=== PATIENT | female | born 1975 | race Caucasian/White ===

== ENCOUNTER 2023-04-01 10:17 | Outpatient (CLI) | payer BC, SELFPAY | END 2023-04-01 10:18 | disposition home or self-care (01) | PROVIDERS: PCP Physician Assistant; Visit Provider Family Medicine | DX: M54.16 Radiculopathy, lumbar region (principal); M51.34 Other intervertebral disc degeneration, thoracic region | CPT/HCPCS: 62323; J0702; Q9966 ==

== ENCOUNTER 2024-03-05 10:32 | Emergency (ER) | payer BC, SELFPAY ==
[2024-03-05 10:40] VITALS: BP 142/113; PULSE 80; RESP 18; TEMP 36.8; O2SAT 100; BMI 42.4
--- NOTE | 2024-03-05 10:47 | ED_ITS ---
HPI - General Adult General Time Seen by Provider: 10:47 Date Seen: 03/05/24 Chief complaint: Flank Pain Stated complaint: Kidney infection pain Time Seen by Provider: 03/05/24 10:47 Source: patient, RN notes reviewed and old records reviewed Mode of arrival: ambulatory Limitations: no limitations History of Present Illness HPI narrative: 48-year-old female who comes in today with flank pain. This started yesterday. She was seen at outside emergency department and had labs and imaging done, was felt that symptoms could be related to musculoskeletal pain in patient was discharged. Followed up with clinic this morning who felt she had a urinary infection, she was given Rocephin IM at the clinic and also discharged with Bactrim and Dilaudid tablets, however she was unable to fill these so came to the emergency department. Patient has multiple drug allergies and intolerances. She denies fever chills, denies urinary symptoms, does have flank pain it known his kidney stones. Related Data Home Medications ?Medication ?Instructions ?Recorded ?Confirmed Blood Glucose Meter 09/10/23 09/10/23 diphenhydramine-phenylephrine 12.5 ml PO 09/10/23 09/10/23 mg-5 mg/5 mL oral solution (Child Benadryl Plus Congestion) hydromorphone 2 mg tablet 2 mg PO Q6H 09/10/23 09/10/23 loratadine 10 mg tablet (Allergy 10 mg PO QDAY 09/10/23 09/10/23 Relief (loratadine)) omeprazole 10 mg capsule,delayed 10 mg PO ONCE 09/10/23 09/10/23 release Previous Rx's ?Medication ?Instructions ?Recorded huilxlbqdo-bfguoidxysqzf-vwxehvis 1 cap PO Q4-6H PRN pain #30 caps 09/10/23 50 mg-300 mg-40 mg capsule (Fioricet) eflornithine 13.9 % topical BID #15 grams 09/10/23 spironolactone 25 mg tablet 25 mg PO QDAY #30 tabs 09/10/23 paroxetine HCl 10 mg tablet 10 mg PO QDAY #30 tabs 10/17/23 hydromorphone 2 mg tablet 2 mg PO Q4H PRN pain #10 tabs 03/05/24 Allergies Allergy/AdvReac Type Severity Reaction Status Date / Time azithromycin Allergy Mild Dizziness Verified 10/13/23 13:38 lidocaine Allergy Mild Rash Verified 10/13/23 13:38 naproxen Allergy Mild Rash Verified 10/13/23 13:38 gluten AdvReac Severe Diarrhea Verified 10/13/23 13:38 lactose AdvReac Severe Abdominal Verified 10/13/23 13:38 Pain adshesive tape AdvReac Severe Redness of Uncoded 10/13/23 13:38 Skin cetrizine AdvReac Severe Muscle Pain Uncoded 10/13/23 13:38 CT dye AdvReac Severe Anaphylaxis Uncoded 10/13/23 13:38 Shellfish AdvReac Severe Difficulty Uncoded 10/13/23 13:38 Swallowing amxocillin AdvReac Intermediate Hives Uncoded 10/13/23 13:38 PFSH PFS Medical History (Updated 03/05/24 @ 12:22 by Timo Astudillo MD) History of gestational diabetes ?Z86.32 - Personal history of gestational diabetes (ICD-10) History of nephrolithiasis ?Z87.442 - Personal history of urinary calculi (ICD-10) History of abnormal cervical Pap smear (2000) ?Z87.42 - Personal history of other diseases of the female genital tract (ICD-10) History of loss ?Z87.59 - Personal history of other complications of , childbirth and the puerperium (ICD-10) Surgical History (Updated 09/08/23 @ 11:02 by Steff Meza) History of cholecystectomy ?Z90.49 - Acquired absence of other specified parts of digestive tract (ICD- 10) History of tonsillectomy and adenoidectomy ?Z90.89 - Acquired absence of other organs (ICD-10) History of loop electrosurgical excision procedure (LEEP) (12/2001) ?Z98.890 - Other specified postprocedural states (ICD-10) Family History (Updated 09/08/23 @ 11:10 by Steff Meza) Father Heart disease High cholesterol Mother Diabetes High cholesterol High blood pressure Exam Narrative: Exam Narrative: General: Well-developed and well-nourished, appears anxious and uncomfortable Head: Atraumatic and normocephalic Eyes: Pupils are equal reactive, extraocular motions intact, conjunctiva clear ENT: External nose and ears are normal, posterior pharynx without erythema or exudate Neck: No midline cervical tenderness, full spontaneous range of motion the neck, trachea midline, no adenopathy Heart: Regular rate and rhythm no murmurs or thrills Lungs: Clear to auscultation bilaterally without wheezes or crackles Abdomen: Soft, left CVA tenderness, nondistended with active bowel sounds Musculoskeletal: No tenderness, deformity, or edema Neurologic: Awake, alert, and oriented x3, no gross focal neurologic deficits, cranial nerves intact as tested Psych: Mood and affect are appropriate Skin: No rashes Const: Vital Signs, click to edit/add: Vital Signs - 24 hr 03/05/24 10:40 Temperature 98.2 F Pulse Rate [Pulse Oximeter] 80 Respiratory Rate 18 Blood Pressure [Ri ght Forearm] 142/113 H Pulse Oximetry 100 Oxygen Delivery Me thod Room Air Course Course ED Course: Patient seen examined, presents today with flank pain. Pain started yesterday, she was seen at the emergency department in [place], review of those records shows CT scan which demonstrated nonobstructing stones in the kidney. He normal CBC, creatinine 0.84, urinalysis with 11-25 red cells, 25 to 50 white cells, leukocyte esterase positive. Patient presents today with continued flank pain. Denies fevers or chills. On initial exam appears quite uncomfortable, finally stable. Concern for possible obstructing stone although not seen on CT scan done early this morning. Labs ordered along with Toradol, Dilaudid. Renal ultrasound ordered to evaluate for obstruction. Reevaluation(s) Time of Reevaluation #1: 11:51 Reevaluation #1: Labs ordered and independently interpreted by me normal CBC. Time of Reevaluation #2: 12:04 Reevaluation #2: I contacted [facility], they do have she oral hydromorphone in stock. Time of Reevaluation #3: 12:17 Reevaluation #3: Renal ultrasound does not show new hydronephrosis,, bilateral ureteral jets are seen. Failure, no evidence for obstruction on ultrasound. Patient is stable for discharge. Vital Signs Vital signs: Initial Vital Signs Temperature 98.2 F 03/05/24 10:40 Temperature Source Temporal Artery Scan 03/05/24 10:40 Pulse Rate 80 03/05/24 10:40 Pulse Rhythm Regular 03/05/24 10:40 Respiratory Rate 18 03/05/24 10:40 Blood Pressure 142/113 H 03/05/24 10:40 Blood Pressure Mean 122 H 03/05/24 10:40 Blood Pressure Position Sitting 03/05/24 10:40 Pulse Oximetry 100 03/05/24 10:40 Oxygen Delivery Method Room Air 03/05/24 10:40 Vital Signs Temperature 98.2 F 03/05/24 10:40 Pulse Rate 80 03/05/24 10:40 Respiratory Rate 18 03/05/24 10:40 Blood Pressure 142/113 H 03/05/24 10:40 Pulse Oximetry 100 03/05/24 10:40 Oxygen Delivery Method Room Air 03/05/24 10:40 Temperature 98.2 F 03/05/24 10:40 Pulse Rate 80 03/05/24 10:40 Respiratory Rate 18 03/05/24 10:40 Blood Pressure 142/113 H 03/05/24 10:40 Pulse Oximetry 100 03/05/24 10:40 Oxygen Delivery Method Room Air 03/05/24 10:40 Medications Administered Medications: Discontinued Medications Generic Name Dose Route Start Last Admin Trade Name Freq PRN Reason Stop Dose Admin Hydromorphone HCl 0.5 mg 03/05/24 11:04 03/05/24 11:43 Hydromorphone 0.5 Mg/0.5 Ml Inj IVP 03/05/24 11:05 0.5 mg ONCE ONE Administration Ketorolac Tromethamine 15 mg 03/05/24 11:04 03/05/24 11:43 Ketorolac 15 Mg/Ml Inj IVP 03/05/24 11:05 15 mg ONCE ONE Administration Ondansetron HCl 4 mg 03/05/24 11:04 03/05/24 11:43 Ondansetron 2 Mg/Ml Inj IVP 03/05/24 11:05 4 mg ONCE ONE Administration Medical Decision Making Lab Data Labs: Lab Results 03/05/24 Range/Units 11:30 WBC 5.15 (4.50-11.00) K/uL RBC 4.60 (4.00-5.20) m/uL Hgb 12.5 (12.0-16.0) gm/dL Hct 38.8 (33.0-51.0) % MCV 84 (80-100) fL MCH 27 (26-34) pg MCHC 32 (32-36) gm/dL RDW Coeff of Nadeem 14.6 (11.5-15.5) % Plt Count 293 (140-440) K/uL Neut % (Auto) 55.3 (42.0-72.0) % Lymph % (Auto) 34.0 (20-44) % [place] % (Auto) 8.0 (0.0-11.0) % Eos % (Auto) 1.7 (0.0-7.0) % Baso % (Auto) 0.8 (0.0-3.0) % Neut # (Auto) 2.85 (1.7-7.0) K/uL Lymph # (Auto) 1.75 (0.90-2.90) K/uL [place] # (Auto) 0.40 (0.00-0.90) K/UL Eos # (Auto) 0.09 (0.00-0.50) K/uL Baso # (Auto) 0.04 (0.00-0.30) K/uL Abs Immat Gran (auto) 0.01 (0.00-0.30) K/uL Imm/Tot Granulo (auto) 0.2 % Sodium 141 (135-149) mmol/L Potassium 4.2 (3.6-5.1) mmol/L Chloride 109 (96-114) mmol/L Carbon Dioxide 24 (20-32) mmol/L Anion Gap 8 (7-15) mEq/L BUN 9 (5-24) mg/dL Creatinine 0.7 (0.5-1.5) mg/dL Estimated Creat Clear 94.01 Estimated GFR 108 ml/min Glucose 98 (60-115) mg/dL Calcium 8.7 (8.4-10.6) mg/dL Discharge Plan Discharge Clinical Impression: Complicated urinary tract infection, Nephrolithiasis Patient Disposition: Home, Self-Care Condition: Stable Instructions: Kidney Stones (ED), Urinary Tract Infection in Women (DC) Additional Instructions: Take Tylenol ibuprofen as needed for pain, Dilaudid as needed for or severe pain Start the antibiotics previously prescribed Follow-up with primary care and Urology next week Activity Level: Activity as Tolerated Discharge Diet: Regular Prescriptions: New hydromorphone 2 mg tablet 2 mg PO Q4H PRN (Reason: pain) Qty: 10 0RF No Action loratadine [Allergy Relief (loratadine)] 10 mg tablet 10 mg PO QDAY Child Benadryl Plus Congestion 12.5-5 mg/5 mL solution PO omeprazole 10 mg capsule,delayed release(DR/EC) 10 mg PO ONCE hydromorphone 2 mg tablet 2 mg PO Q6H (DME) Blood Glucose Meter Misc See Rx Instructions .ROUTE Rx Instructions: As directed ulyazxzowz-ntyzyupufzogm-njbl [Fioricet] 50-300-40 mg capsule 1 cap PO Q4-6H PRN (Reason: pain) Qty: 30 1RF spironolactone 25 mg tablet 25 mg PO QDAY Qty: 30 2RF eflornithine 13.9 % topical BID Qty: 15 1RF Rx Instructions: Eflornithine 13.9% topical cream Apply a thin layer to the affected area(s) of the face and under the chin twice a day allowing at least 8 hours between applications. paroxetine HCl 10 mg tablet 10 mg PO QDAY Qty: 30 1RF Follow Up/Referrals: Melly Noguera PA-C [Primary Care Provider] - Stand Alone Forms: [facility] Info Instructions
--- NOTE | 2024-03-05 11:05 | CRLHL7_ITS ---
For Patients: As a result of the Century Cures Act, medical imaging exams and procedure reports are released immediately into your electronic medical record. You may view this report before your referring provider. If you have questions, please contact your health care provider. Indication: Left flank pain. Technique: Ultrasound of the kidneys and bladder was performed. Comparison: Same day CT of the abdomen and pelvis. Findings: Right kidney measures 13.2 x 5.1 x 5.5 cm and left kidney measures 13.5 x 5.9 x 6.8 cm. Renal cortical thickness is maintained. Renal cortical echogenicity is normal. No hydronephrosis. No discrete renal mass is seen. There is a simple appearing renal pelvis cysts involving the left renal hilum measuring 3.9 x 3.7 x 4.3 cm. No internal solid components or complexity is identified. The bilateral nonobstructing renal calculi seen on same-day CT are not readily apparent on ultrasound. The bladder is unremarkable for degree of distention. Prevoid bladder volume measures 51 mL. Bilateral ureteral jets were visualized on color Doppler. Impression: 1. Simple appearing left renal pelvis cyst measures up to 4.4 cm. 2. No hydronephrosis. 3. Bilateral nonobstructing renal calculi seen on same-day CT are less conspicuous on ultrasound. Dictated by Annie Cuevas MD @ 03/05/2024 12:07:19 PM (Electronically Signed)
[2024-03-05 11:41] LABS: Basophils Absolute Auto 0.04 K/uL (0.00-0.30); Basophils Percent Auto 0.8 % (0.0-3.0); Eosinophils Absolute Auto 0.09 K/uL (0.00-0.50); Eosinophils Percent Auto 1.7 % (0.0-7.0); Hematocrit 38.8 % (33.0-51.0); Hemoglobin* 12.5 gm/dL (12.0-16.0); Immature Granulocytes Abs Auto 0.01 K/uL (0.00-0.30); Immature Granulocytes Pct Auto 0.2 %; Lymphocytes Absolute Auto 1.75 K/uL (0.90-2.90); Mean Corpuscular HGB Conc 32 gm/dL (32-36); Mean Corpuscular Hemoglobin 27 pg (26-34); Mean Corpuscular Volume 84 fL (80-100); Neutrophils Absolute Auto 2.85 K/uL (1.7-7.0); Neutrophils Percent Auto 55.3 % (42.0-72.0); Platelet Count* 293 K/uL (140-440); RDW Coefficient of Variation % 14.6 % (11.5-15.5); White Blood Count* 5.15 K/uL (4.50-11.00)
[2024-03-05] MEDS: HYDROmorphone 0.5 mg/0.5 ml inj IVP (11:43)
[2024-03-05] MEDS: KETOROLAC 15 MG/ML inj IVP (11:43)
[2024-03-05] MEDS: ONDANSETRON 2 MG/ML inj 4 MG IVP (11:43)
[2024-03-05 11:46] LABS: Slide Review Reflex No
[2024-03-05 11:55] LABS: Chloride* 109 mmol/L (96-114); Potassium* 4.2 mmol/L (3.6-5.1); Sodium* 141 mmol/L (135-149)
[2024-03-05 11:57] LABS: Creatinine* 0.7 mg/dL (0.5-1.5); Est. Creatinine Clearance* 94.01; Estimated Glomerular Filt Rate 108 ml/min
[2024-03-05 11:58] LABS: Blood Urea Nitrogen* 9 mg/dL (5-24); Calcium* 8.7 mg/dL (8.4-10.6); Carbon Dioxide* 24 mmol/L (20-32); Glucose* 98 mg/dL (60-115)
[2024-03-05 12:14] LABS: Anion Gap 8 mEq/L (7-15)
== END 2024-03-05 13:03 | disposition home or self-care (01) ==
PROVIDERS: Emergency Provider Family Medicine; PCP Physician Assistant
DX: N39.0 Urinary tract infection, site not specified (principal); N20.0 Calculus of kidney
CPT/HCPCS: 36415; 76775; 80048; 85025; 96374; 96375; 99284; J1170; J1885; J2405

== ENCOUNTER 2025-07-21 07:39 | Emergency (ER) | payer BC, SELFPAY ==
[2025-07-21] VITALS (7 sets, daily range): BP systolic 133; BP diastolic 81; PULSE 69–86; RESP 16–18; TEMP 36.5; O2SAT 96–100; BMI 42.0
--- OUTSIDE RECORDS SUMMARY | 2025-07-21 07:41 | XMS_ITS | Clinical Summary ---
Author Organization [facility] Address [address] [place] [address] Care Team Providers Care Bliss Press Operator Name Role Phone Unavailable Primary Care Provider Unavailabl e Source Comments You are receiving this document as you are listed as the primary care provider,follow-up provider, or the patient has been referred to you for consultation.This is in compliance with the Medicare and[facility] EHR Incentive Program,which states Providers who transition their patient to another setting of careor provider of care or refers their patient to another provider of care shouldprovide summary care record for each transition of care or referral. [facility] Allergies Active Allergy Reactions Criticality Noted Date Comments Amoxicillin Hives High 12/26/2021 Cetirizine Hives High 12/26/2021 Gluten Meal Edema,generalized 12/26/2021 Lidocaine Hives High 12/26/2021 Milk-Related Compounds Gastrointestinal 022 Naproxen Anaphylaxis High 12/26/2021 Wound Dressing Adhesive Rash 12/26/2021 Penicillins Unknown 12/26/2021 Seafood Anaphylaxis High 12/26/2021 Azithromycin Respiratory Distress High 12/26/2021 Medications HYDROmorphone (DILAUDID) 2 MG tablet Take 2 mg by mouth 4 times a day. 12/20/2021 Active cefadroxil (DURICEF) 500 MG capsule Take 500 mg by mouth two times daily as needed. 12/20/2021 Active Cholecalciferol (VITAMIN D3 OR) Acti ve cyclobenzaprine (FLEXERIL) 5 MG tablet Take 5 mg by mouth three times a day as needed for Muscle Spasms. Active HYDROcodone-sabine taminophen (NORCO) 5-325 MG tablet Take 1-2 Tablets by mouth every 6 hours as needed for Pain. Active loratadine (CLARITIN) 10 MG tablet Take 10 mg by mouth daily. Active Nystatin (MYCOSTATIN MT) Acti ve omeprazole (PRILOSEC) 20 MG capsule Take 20 mg by mouth daily. Take 1 hour before a meal. Active diphenhydrAMINE (BENADRYL) 12.5 MG chewable tablet Chew and swallow 12.5 mg by mouth 4 times daily as needed for Allergies. Active Active Problems Problem Noted Date Diagnosed Date History of miscarriage 12/26/2021 Chronic back pain greater than 3 months duration 12/26/2021 Positive MAGDI (antinuclear antibody) 12/26/2021 Vitamin D deficiency 06/20/2011 Hx LEEP (loop electrosurgica l excision procedure), cervix, 10/04/2010 High-risk 10/04/2010 Renal colic on left side 10/04/2010 Polyhydramnios, antepartum complication 10/04/19 11 Obesity, morbid (more than 1 00 lbs over ideal weight or BMI > 40) 10/04/2010 Generalized anxiety disorder 05/17/2010 Obesity 10/19/2008 Overview (06/22/2015): Epic Resolved Problems Problem Noted Date Diagnosed Date Resolved Date Renal calculus or stone 10/04/201005/24 Encounter for supervision of other normal 02/06/2010 06/17/2011 Immunizations Immunization Administration Dates Next Due DTP 08/18/1979,08/04/1978,05/12/1978 ,02/03/1978 MMR 02/25/1979 Polio, Unspecified Formulation 08/18/1979,1977,05/12/1978,02/03/1978 TB Skin Test (PPD) 11/12/1978 Family History Medical History Relation Name Comments Blood Disease Father blood clotting ? Heart Disease Father High Blood Pressure Father Other Father DVT's Diabetes Mother High Blood Pressure Mother Lipids Mother Lipids Brother 1 Heart Disease Brother 2 Heart Disease Brother 3 Psoriasis Daughter Diabetes Maternal Grandfather Heart Disease Maternal Grandfather Diabetes Paternal Grandfather Heart Disease Paternal Grandfather Relation Name Status Comments Father Mother Brother 1 Brother 2 Brother 3 Daughter Maternal Grandfather Paternal Grandfather Social History Tobacco Use Types Packs/Day Years Used Date Smoking Tobacco: Former Cigarettes 1 10 1 995 - 2005 Smokeless Tobacco: Never Comments:smoked for 9 yr Alcohol Use Standard Drinks/Week Comments Not Currently 0 (1 standard drink = 0.6 oz pur e alcohol) occasoinally Comments Unknown Sex and Gender Information Value Date Recorded Sex Assigned at Not on file Legal Sex Female 8:57 AM CDT Gender Identity Not on file Sexual Orientation Not on file Last Filed Vital Signs Vital Sign Reading Time Taken Comments Blood Pressure 115/82 12/26/2021 2:52 PM CDT Pulse 101 12/26/2021 2:52 PM CDT Temperature - - Respiratory Rate - - Oxygen Saturation - - Inhaled Oxygen Concentration - - Weight - - Height - - Body Mass Index - - Plan of Treatment Health Maintenance Due Date Last Done Comments Cervical Cancer Screening Due 1977 Colon Cancer Screening Plan Due 1977 Hep C Screening (Preventive Services) 1977 Mammogram 1977 DTaP/Tdap/Td Vaccine (5 - Tdap) 1988 08/18/1979, 08/04/1978, 05/12/1978, Additional history exists HIV Screening (Preventive Services) 1993 Adult Preventive Visit 1995 HepB Vaccine (1) 1996 Cholesterol 2022 COVID-19 Vaccine ( season) 2025 Influenza Vaccine (#1) 2025 Zoster/Shingles Vaccine (1 of 2) 2027 IPV (Polio) Vaccine Completed 08/18/1979, 08/04/1978, 05/12/1978, Additional history exists HepA Vaccine Aged Out No longer eligi ble based on patient's age to complete this topic Hib Vaccine Aged Out No longer eligi ble based on patient's age to complete this topic MCV4 Vaccine Aged Out No longer eligi ble based on patient's age to complete this topic Meningococcal B Vaccine Aged Out No l onger eligible based on patient's age to complete this topic Pneumococcal Vaccine Aged Out No long er eligible based on patient's age to complete this topic
--- OUTSIDE RECORDS SUMMARY | 2025-07-21 07:41 | XMS_ITS | Clinical Summary ---
Author Organization [facility] Address [address] [place] [address] Care Team Providers Care Practice Representative Name Role Phone Lashanda Patel Luis RADIO STATION OPERATOR Unavailable [phone] Edgar Taylor PsyD, LP Unavailable [phone] Beverley Tenorio NP Unavailable Unavailable Radha Villavicencio RD Unavailable Unavailab Melly Henao Primary Care Provider [phone] Allergies Active Allergy Reactions Criticality Noted Date Comments Amoxicillin Hives 11/08/2018 Cetirizine Hives 03/01/2019 Iodixanol *Unknown 11/21/2022 Per patient Milk Stomach Upset 10/25/2018 Severe heartburn. Gluten Edema,Erythema 10/25/2018 Lidocaine Hives 10/27/2007 Patient tolerated preservative free lidocaine 1% in 2020 at [facility] and [address] [facility]. Naproxen Anaphylaxis High 10/27/2007 Tolerates toradol and ibuprofen Penicillins *Unknown 11/05/2018 Shellfish Containing Products Throat Swelling/Closing High 11/06/2018 Adhesive Rash,Erythema 02/18/2012 Azithromycin Itching,Respiratory Distress 11/20/2007 Medications blood-glucose meterIndications :Impaired fasting glucose Dispense meter, test strips, lancets covered by pt ins. Impaired glucose tolerance. Testing once daily. 1 Device 7 Active cholecalciferol, vitamin D3, 1,000 unit/drop drop Take 7,000-10,000 Units by mouth once daily. Active loratadine (CLARITIN) 10 mg tablet Take 10 mg by mouth once daily if needed for Allergy Symptoms. Active medication order composer CBD, unknown dose, Take by mouth daily. Active Lactobacillus acidophilus (PROBIOTIC ACIDOPHILUS ORAL) Take by mouth. Activ e blood-glucose meterIndications :Pre-diabetes Dispense Kalina Contour Next meter, test strips, lancets. Check blood sugars 2-3 times per week 1 Each 2 Active Microlet Lancet TEST BLOOD SUGAR ONCE DAILY 2 Active CaneIndications: Lumbar herniated disc,Lumbar radicular pain Wide Base Quad Cane for home use. For 99 weeks. 1 Each 3 Active omeprazole (PRILOSEC) 40 mg Delayed-Release capsuleIndicatio ns:Chronic GERD Take 1 Capsule (40 mg) by mouth once daily before a meal. 90 Capsule 3 4 Active cyclobenzaprine (FLEXERIL) 5 mg tabletIndication s:Chronic radicular cervical pain,Radicular pain of thoracic region Take 1 Tablet (5 mg) by mouth three times daily. 60 Tablet 1 5 Active semaglutide 1 mg/dose (4 mg/3 mL) subcutaneous penIndications:T ype 2 diabetes mellitus without complication, without long-term current use of insulin (HC),Class 3 severe obesity with serious comorbidity and body mass index (BMI) of 40.0 to 44.9 in adult, unspecified obesity type (HC) Inject 1 mg subcutaneous once weekly. Start after 4 weeks of 0.5 mg dosing, continue 1 mg dose for maintenance. 9 mL 1 5 Active Graduated Compression StockingsIndicat ions:Varicose veins of right lower extremity with pain For personal use. Length: calf Strength: 20-30 mmHg 3 Packet 5 Active Graduated Compression StockingsIndicat ions:Varicose veins of right lower extremity with pain For personal use. Length: thigh Strength: 20-30 mmHg 1 Packet 5 Active LORazepam 1 mg tabletIndication s:Claustrophobia Take 1 mg within 1 hour of your MRI. 5 Tablet 5 Active HYDROmorphone (Dilaudid) 4 mg tabletIndication s:Radicular pain of thoracic region Take 0.5 Tablets (2 mg) by mouth every 6 hours if needed for Pain. 20 Tablet 5 Active drospirenone-eth inyl estradioL (PENG) 3-0.03 mg tabletIndication s:Dysfunctional uterine bleeding Take 1 Tablet by mouth once daily. 28 Tablet 5 Active lancets (CopybarTouch Delica Lancets) 30 gauge miscIndications: Type 2 diabetes mellitus without complication, without long-term current use of insulin (HC) As directed. Dispense item covered by pt ins. impaired glucose tolerance. Test blood sugar once daily 100 Each 3 5 Active blood sugar diagnostic (CopybarTouch Ultra Test) stripIndications :Type 2 diabetes mellitus without complication, without long-term current use of insulin (HC) Dispense item covered by pt ins. Test blood sugars once daily 100 Each 5 Active Active Problems Problem Noted Date Diagnosed Date Moderate episode of recurrent major depressive d isorder 05/17/2025 Type 2 diabetes mellitus wit hout complication, without long-term current use of insulin 12/07/2024 DDD (degenerative disc disease), thoracic 2022 Nephrolithiasis 12/06/2022 Chronic radicular lumbar pain 01/05/2022 Lumbar herniated disc 01/05/2022 HUMPHREY (generalized anxiety disorder) 06/01/2021 Pain disorder associated wit h psychological and physical factors 11/22/2018 Adjustment disorder with mixed anxiety and depre ssed mood 11/22/2018 Fatty liver 11/05/2017 Cyst of left kidney 11/05/2017 Incomplete right bundle bran ch block (RBBB) determined by electrocardiography 12/09/2016 Right bundle branch block 12/09/2016 Obesity, unspecified 10/19/2008 Duodenitis Resolved Problems Problem Noted Date Diagnosed Date Resolved Date Pap smear for cervical cancer screening 10/01/2022 12/06/2022 Overview (10/01/2022): 1999 LEEP, unable to locate records 2006 Blanchard, unable to locate records 12/04/2010 NIL 01/12/2012 NIL 05/11/2018 NIL 08/26/2022 NIL/HPV negative Plan: Pap/hpv due 08/2025 Flank pain 01/05/2022 12/06/2022 Controlled type 2 diabetes m ellitus without complication, without long-term current use of insulin 03/27/2020 10/26/2020 JACQUELINE (acute kidney injury) 11/05/2018 Nephrolithiasis 11/05/2018 03/15/2019 Pre-diabetes 05/11/2018 12/07/2024 Fibromyalgia 11/05/2017 03/15/[address]-T wave electr ocardiographic changes 12/09/2016 03/15/2019 Impaired fasting glucose 10/24/2016 Vitamin D deficiency 06/20/2011 021 Renal calculus or stone 10/04/201005/24 Renal colic on left side 10/04/2010 Obesity, morbid (more than 1 00 lbs over ideal weight or BMI > 40) 10/04/2010 12/05/2016 Overview (10/04/2010): High-risk 10/04/2010 01/06/20 13 Polyhydramnios, antepartum complication 10/04/2010 01/05/2013 Hx LEEP (loop electrosurgica l excision procedure), cervix, 10/04/2010 12/05/2016 Generalized anxiety disorder 05/17/2010 03/15/2019 Supervision of other normal 02/06/2010 06/17/2011 Back pain 01/05/2022 Encounters Date Type Department Care Team Description 07/19/2025 8:00 AM CDT Office Visit [facility] [address] [place] [address] Al Dave PsyD, LP Individual Therapy 07/19/2025 Travel 07/05/2025 8:00 AM CDT Office Visit [facility] [address] [place] [address] Al Dave PsyD, LP Individual Therapy 07/05/2025 Travel 06/21/2025 8:00 AM CDT Office Visit [facility] [address] [place] [address] Al Dave PsyD, LP Individual Therapy 06/21/2025 Travel 06/15/[address] [facility] [address] [place] [address] Melly Noguera PA Medication Management (Microlet Lancet /blood sugar diagnostic (OneTouch Ultra Test) strip //) 06/14/[address] [facility] [address] [place] [address] Melly Noguera PA Refill Request (Microlet lancets, Contour Next strips) 06/09/2025 8:00 AM CDT Office Visit [facility] [address] [place] [address] Al Dave PsyD, LP Individual Therapy 06/09/2025 Travel 05/19/[address] [facility] [address] [place] [address] Melly Noguera PA Referral (And refills) 05/17/2025 12:30 PM CDT Office Visit [facility] [address] [place] [address] Al Dave PsyD, LP Individual Therapy 05/16/2025 10:40 AM CDT Office Visit [facility] [address] [place] [address] Fernando'Katia Spaulding, OD Eye Exam (diabetic ) 05/16/2025 Travel 05/08/2025 Travel 04/27/2025 8:00 AM CDT Telemedicine [facility] [address] [place] [address] Al Dave PsyD, LP Individual Therapy; Telehealth 04/27/2025 Travel 04/27/[address] [facility] [address] [place] [address] Al Dave PsyD, LP Appointment (04/27/25) 04/20/2025 9:00 AM CDT Office Visit [facility] [address] [place] [address] Al Dave PsyD, LP Individual Therapy; MH Trmt Plan 04/20/2025 Travel from Last 3 Months Immunizations Immunization Administration Dates Next Due DTP 08/18/1979,08/04/1978,05/12/1978 ,02/03/1978 MMR 02/25/1979 Oral Polio Vaccine 08/18/1979,08/04/1978, 978,02/03/1978 Tuberculin (PPD) 11/12/1978 Family History Medical History Relation Name Comments Alcoholism Brother 1 Cardiomyopathy Brother 1 Depression Brother 1 Hypertension Brother 1 Liver disease Brother 1 Mental illness Brother 1 Hyperlipidemia Brother 3 Heart Disease Brother 4 Heart Disease Brother 5 Blood Disease Father blood clotting ? Coronary artery disease Father Depression Father Diabetes Father Heart Disease Father Hyperlipidemia Father Hypertension Father Kidney disease Father Mental illness Father Other Father DVT's Diabetes Maternal Grandfather Heart Disease Maternal Grandfather Heart attack Maternal Grandfather Obesity Maternal Grandfather Cardiomyopathy Mother Diabetes Mother Diabetes type II Mother Hyperlipidemia Mother Hypertension Mother Other Mother substance abuse dependence Diabetes Paternal Grandfather Heart Disease Paternal Grandfather Cancer Paternal Grandmother Diabetes Paternal Grandmother Obesity Paternal Grandmother Relation Name Status Comments Brother 1 murdered Brother 2 heart issues Brother 3 Brother 4 Brother 5 Father Maternal Grandfather (Age 70'S) Heart attack Mother Paternal Grandfather (Age 60'S) Diabetes Paternal Grandmother (Age 80'S) Cancer Social History Tobacco Use Types Packs/Day Years Used Date Smoking Tobacco: Former Cigarettes 1 10 0 02/20/1995 - 02/20/2005 Smokeless Tobacco: Never Tobacco Cessation:Counseling Given: No Alcohol Use Standard Drinks/Week Comments No 0 (1 standard drink = 0.6 oz pure alcohol) occasoinally/distant hx fo etoh abuse [id number] after of brother PHQ-2 Answer Date Recorded PHQ-2 TOTAL SCORE 4 03/29/2025 Social Connections Answer Date Recorded Do you often feel lonely or isolated from those around you? 4 12/06/2024 Financial Resource Strain Answer Date R ecorded Difficulty of Paying Living Expenses 3 12/06/2024 Difficulty of Paying Living Expenses Not on file 12/06/2024 Food Insecurity Answer Date Recorded Do you worry your food will run out before you are able to buy more? 1 12/06/2024 Transportation Needs Answer Date Record ed Does lack of transportation keep you from medica l appointments? 2 12/06/2024 Does lack of transportation keep you from work, meetings or getting things that you need? 1 12/06/2024 Housing Stability Answer Date Recorded What is your housing situation today? 1 12/06/2024 Interpersonal Safety Answer Date Record ed Are you being hit, kicked, p ushed or yelled at (see row info)? No 03/05/2024 Interpersonal Safety Abuse 12 - 18 Not on file 03/05/2024 Interpersonal Safety Ambulatory Vulnerability No t on file 03/05/2024 Utilities Answer Date Recorded Do you have trouble paying f or utilities (for example, heat, electricity, water, phone)? 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 Not on file Not on file Not on file Obstetrics History Para Term AB IAB SAB Ectopic Multiple Livin g Live Births 4 3 3 1 1 2 Date Outcome GA Total Labor Labor/2nd/3rd Weight Sex Type Anes PTL Julianna A1 A5 Name Clin Term Term Term SAB Last Filed Vital Signs Vital Sign Reading Time Taken Comments Blood Pressure 118/81 03/29/2025 1:59 PM CDT Pulse 79 03/29/2025 1:59 PM CDT Temperature 36.4 C (97.6 F) 03/05/2024 2:09 AM CDT Respiratory Rate 22 03/05/2024 2:11 AM CDT Oxygen Saturation 97% 03/29/2025 1:59 PM CDT Inhaled Oxygen Concentration - - Weight 117 kg (258 lb) 03/29/2025 1:59 PM CDT Height 167.6 cm (5' 6) 03/05/2024 2:10 AM CDT Body Mass Index 41.64 03/05/2024 2:10 AM CDT Plan of Treatment Upcoming Encounters Date Type Department Care Team (Late st Contact Info) Description 07/28/2025 8:00 AM FUNDING SPECIALIST Office Visit [facility] [address] [facility] [place] [address] Al Dave PsyD, VIKTORIYA [address] [place] [address] 08/11/2025 8:00 AM FUNDING SPECIALIST Office Visit [facility] [address] [place] [phone] Al Dave PsyD, VIKTORIYA [address] [place] [address] 08/25/2025 8:00 AM FUNDING SPECIALIST Office Visit [facility] [address] [place] [phone] Al Dave PsyD, VIKTORIYA [address] [place] [address] 09/08/2025 8:00 AM FUNDING SPECIALIST Office Visit [facility] [address] [place] [address] Al Dave PsyD, VIKTORIYA [address] [place] [address] 09/21/2025 8:00 AM FUNDING SPECIALIST Office Visit [facility] [address] [place] [address] Al Dave PsyD, VIKTORIYA [address] [place] [address] Health Maintenance Due Date Last Done Comments Tetanus booster 1988 Hepatitis C screening for ag e 18-79 1995 Hepatitis B series for 19+ ( 1 of 3 - 19+ 3-dose series) 1996 Pneumococcal series for age 6-49 (1 of 2 - PCV) 1996 Colonoscopy through age 75 2022 Mammogram for age 45-75 2022 BMI (ht and wt on same day) for age 18+ 01/01/2025 01/02/2024, 01/24/2022, 01/10/2022, Additional history exists Influenza Vaccine (#1) 2025 Pap test for age 21-65 08/26/2025 , 08/26/2022, 05/11/2018, Additional history exists Depression screening for age 12+ 03/29/2026 03/29/2025, 12/06/2024, 01/01/2023, Additional history exists Lipids for age 45-75 12/06/2029 12/06/2024, 04/15/2024, 10/26/2020, Additional history exists RSV vaccine for adults or (1 - 1-dose 75+ series) 2052 HIV for age 15-65 Completed 07/17/2012 Medical Devices Implanted Type Area Electrical Line Splicer Device Identifier Shelf Expiration Date Model / Serial / Lot Stent Uret [id number] Silhouette - [id number] Implanted:Qty: 1 on 11/06/2018 by Romie Murphy MD at [facility] Right: Ureter [employer] Basim 02/24/2021 [id number] / / [id number] Stent Uret [id number] Percuflex Hydroplus - [id number] Implanted:Qty: 1 on 03/01/2021 by Ramez Jaime MD at [facility] Left: Ureter [facility] 12/20/2022 [id number] / / [id number] Procedures Procedure Name Priority Date/Time Associated Diagnosis Comments LIPID PANEL W REFLEX MEASURED LDL Routine 12/06/2024 10:04 AM CDT Screening cholesterol level RASCHEL KNITTING MACHINE OPERATOR THIN PREP PAP SCREEN IMAGED Routine 08/26/2022 9:08 AM FUNDING SPECIALIST Screening for malignant neoplasm of cervix ANTI HIV 1/2 Routine 07/17/2012 3:46 PM CDT Screen for STD (sexually transmitted disease) from Last 3 Months or Most Recently Relevant to Health Maintenance Results * LIPID PANEL W REFLEX MEASURED LDL (12/06/2024 10:04 AM CDT) CHOLESTEROL, TOTAL 175 <200 mg/dL [facility] HDL CHOLESTEROL 63 > OR = 50 mg/dL [facility] TRIGLYCERIDES 111 <150 mg/dL [facility] LDL-CHOLESTEROL 91 mg/dL (calc) [facility] Comment: Reference range: <100 Desirable range <100 mg/dL for primary prevention; <70 mg/dL for patients with CHD or diabetic patients with > or = 2 CHD risk factors. LDL-C is now calculated using the Susan calculation, which is a validated novel method providing better accuracy than the Friedewald equation in the estimation of LDL-C. Abdifatah SS et al. ALICIA. 2013;310(19): 6322-3429 (http://education.KitLocate/faq/CVI850) CHOL/HDLC RATIO 2.8 <5.0 (calc) [facility] NON HDL CHOLESTEROL 112 <130 mg/dL (calc) [facility] Comment: For patients with diabetes plus 1 major ASCVD risk factor, treating to a non-HDL-C goal of <100 mg/dL (LDL-C of <70 mg/dL) is considered a therapeutic option. Blood BLOOD SPECIMEN / Unknown 12/06/2024 10:04 AM CDT 12/06/2024 10:05 AM CDT Melly ANDRES CHEMISTRY Final Resu lt Ansible [facility] [address] [place] [address], [facility] [facility] [address] [place] [address] * RASCHEL KNITTING MACHINE OPERATOR THIN PREP PAP SCREEN IMAGED (08/26/2022 9:08 AM FUNDING SPECIALIST) Case Report Gynecologic Cytology Report Case: [id number] Authorizing Provider: Melly Noguera PA Collected: 08/26/2022 0908 Ordering Location: [facility] Received: 08/26/2022 0908 Clinic First Screen: Ramin Duvall Rescreen: Arnaud Bradford Specimen: RASCHEL KNITTING MACHINE OPERATOR ThinPrep Vial Screening, Cervical 09/18/2022 11:29 AM FUNDING SPECIALIST [email or web address] ENTRAL LAB[facility] INTERPRETATION/ RESULT NEGATIVE FOR INTRAEPITHELIAL LESION OR MALIGNANCY (NIL) (none) 09/18/2022 11:29 AM FUNDING SPECIALIST [facility] at [address]9 FUNDING SPECIALIST SPECIMEN ADEQUACY Satisfactory for evaluation No endocervical component seen 09/18/2022 11:29 AM FUNDING SPECIALIST [facility] HPV REQUEST HPV and PAP 09/18/2022 11:29 AM FUNDING SPECIALIST [email or web address] Date of LMP 08/15/22 09/18/2022 11:29 AM FUNDING SPECIALIST [email or web address] EN[facility] Last Pap Date 05/11/18 09/18/2022 11:29 AM FUNDING SPECIALIST [facility] [facility] Last Pap Result NIL 11:29 AM FUNDING SPECIALIST [facility] [employer] ENTRAL LABORATORY Abnormal Pap or Blanchard Bx in last 5 years No 09/18/2022 11:29 AM FUNDING SPECIALIST [facility] Menstrual Status Regular Periods 09/18/2022 11:29 AM FUNDING SPECIALIST [facility] Blanchard Bx Done Today No 09/18/2022 11:29 AM FUNDING SPECIALIST [facility] [employer] ENTRAL LABORATORY Additional Information None given 09/18/2022 11:29 AM FUNDING SPECIALIST [facility] ENTRAL LABORATORY Comment: Cytology is screened at [facility], Central Laboratory - [address], [place] [address] and [facility] - [address], [place] [address] and [facility] - [address] [place] [address] Interpreted at [facility], Central Laboratory - [address], [place] [address] Automated Review Successful 09/18/2022 11:29 AM FUNDING SPECIALIST [facility] [employer] [facility] ENTRAL LABORATORY Comment:Specimen processed s uccessfully by automated store operations associate device, ThinPrep Imaging System, [employer] ANCILLARY TESTING RASCHEL KNITTING MACHINE OPERATOR HPV Ordered, Please see separate report 09/18/2022 11:29 AM FUNDING SPECIALIST [facility] [employer] [facility] ENTRAL LABORATORY Note The pap test is a screening technique, not a diagnostic procedure. It is used primarily to screen for squamous cancers and precursor lesions. Published studies have shown that it is subject to both false negative and false positive results. The pap test should not be used as the sole means to diagnose or exclude pre-malignant and malignant lesions. 09/18/2022 11:29 AM FUNDING SPECIALIST [facility] ENTRAL LABORATORY Other (Cervical) Non-Blood / Unknown 08/26/2022 9:08 AM FUNDING SPECIALIST 08/26/2022 9:08 AM FUNDING SPECIALIST Melly ANDRES PATHOLOGY/CYTOLOGY Final R esult [facility] [address] [place] [address], [place] * ANTI HIV 1/2 (07/17/2012 3:46 PM CDT) ANTI HIV 1/2 Non-reacti ve [facility] Blood specimen (specimen) BLOOD SPECIMEN / Unknown 07/17/2012 3:46 PM CDT 07/17/2012 3:24 PM CDT Maki King SEND OUTS Final Result [facility] [place]NAL ZIP [id number] [place] [address] from Last 3 Months or Most Recently Relevant to Health Maintenance Insurance [facility] [employer] [facility] Advance Directives * Full Code (Latest Code Status on File) Date Activated Date Inactivated Comments 12/12/2022 10:58 AM 12/12/2022 5:28 PM Question Answer Comments Code Status Discussion: Discussed * Full Code Date Activated Date Inactivated Comments 11/05/2018 6:40 PM 11/06/2018 11:01 PM * Full Code Date Activated Date Inactivated Comments 02/20/2012 7:29 AM 02/20/2012 4:44 PM * Full Code Date Activated Date Inactivated Comments 10/04/2010 1:48 PM 10/06/2010 4:33 PM Care Teams Practice Representative Relationship Specialty Start Date End Date Melly Noguera PA [facility] [place] [address] PCP - General Physician Pattern Chain Builder 03/19/23 Lashanda Patel, [facility] [address] [place] [address] [facility] Mechanic Welder 10/08/17 Edgar Taylor PsyD, LP [address] [place] [address] Psychologist Psychology 10/26/17 JonaBeverley georges NP [address] [place] [address] Consulting Physician Nurse Practitioner - Family 09/26/[address] [facility] [place] [address] Registered Dietitian Co Director 09/26/21
--- NOTE | 2025-07-21 08:04 | CRLHL7_ITS ---
For Patients: As a result of the Century Cures Act, medical imaging exams and procedure reports are released immediately into your electronic medical record. You may view this report before your referring provider. If you have questions, please contact your health care provider. INDICATION: Left flank pain, history of stones TECHNIQUE: Axial images were obtained from the diaphragm to the pubic symphysis. Reformats were obtained in the coronal and sagittal plane. IV Contrast: None Oral Contrast: None COMPARISON: Abdomen and pelvis CT 03/05/2024 FINDINGS: Lower chest: Unremarkable. Liver: Unremarkable. Normal in size and attenuation. No masses. Gallbladder and bile ducts: Status post cholecystectomy. Spleen: Unremarkable. Normal in size without mass. Pancreas: Unremarkable. No mass or inflammation. Adrenal glands: Unremarkable. No nodules. Kidneys: Nonobstructing nephrolithiasis. Likely peripelvic cysts redemonstrated the left kidney measuring 4.3 centimeters. No hydronephrosis or ureteral stone. Vasculature: Unremarkable. GI tract: The stomach is unremarkable. No dilated loops of large or small intestine. Normal appendix. Colonic diverticulosis. Pelvis: Unremarkable. Bones: Unremarkable for age. IMPRESSION: 1. Nephrolithiasis without evidence of ureteral stone or hydronephrosis. 2. Colonic diverticulosis without CT evidence of diverticulitis. Please note that all CT scans at this facility use dose modulation, iterative reconstruction, and/or weight-based dosing when appropriate to reduce radiation dose to as low as reasonably achievable. Dictated by Ramirez Yanez MD @ 07/21/2025 9:30:11 AM (Electronically Signed)
--- NOTE | 2025-07-21 08:05 | ED.GENADULT ---
HPI - General Adult General Chief complaint: Flank Pain Stated complaint: flank pain Time Seen by Provider: 07/21/25 07:58 History of Present Illness HPI narrative: This 49-year-old female comes in reporting left flank pain that began yesterday. She states that she has a history of frequent recurrent kidney stones and these symptoms are very typical. She has some nausea but no vomiting. She reports some dysuria symptoms also stating that it seems more difficult to get urine to flow. She does not report any hematuria. Related Data Home Medications ?Medication ?Instructions ?Recorded ?Confirmed Blood Glucose Meter 09/10/23 09/10/23 diphenhydramine-phenylephrine 12.5 ml PO 09/10/23 09/10/23 mg-5 mg/5 mL oral solution (Child Benadryl Plus Congestion) hydromorphone 2 mg tablet 2 mg PO Q6H 09/10/23 07/21/25 Previous Rx's ?Medication ?Instructions ?Recorded hydromorphone 2 mg tablet 2 mg PO Q4H PRN pain #10 tabs 03/05/24 cephalexin 500 mg capsule 500 mg PO TID 7 days #21 caps 07/21/25 ketorolac 10 mg tablet 10 mg PO TID 5 days #15 tabs 07/21/25 potassium citrate 15 mEq (1,620 15 meq PO BID #60 tabs 07/21/25 mg) tablet,extended release (Urocit-K 15) Allergies Allergy/AdvReac Type Severity Reaction Status Date / Time azithromycin Allergy Mild Dizziness Verified 07/21/25 07:55 lidocaine Allergy Mild Rash Verified 07/21/25 07:55 naproxen Allergy Mild Rash Verified 07/21/25 07:55 morphine Allergy Verified 07/21/25 07:55 gluten AdvReac Severe Diarrhea Verified 10/13/23 13:38 lactose AdvReac Severe Abdominal Verified 10/13/23 13:38 Pain adshesive tape AdvReac Severe Redness of Uncoded 10/13/23 13:38 Skin cetrizine AdvReac Severe Muscle Pain Uncoded 10/13/23 13:38 CT dye AdvReac Severe Anaphylaxis Uncoded 10/13/23 13:38 Shellfish AdvReac Severe Difficulty Uncoded 10/13/23 13:38 Swallowing amxocillin AdvReac Intermediate Hives Uncoded 01/22/24 13:38 Review of Systems Status of ROS: Reports: 10 or more systems reviewed and unremarkable except as noted in History and below Narrative: Constitutional: No fevers, no weight gain or loss. Eyes: No discharge. No vision changes. HENT: No congestion, no sore throat, no ear pain. Cardiovascular: No chest pain, no palpitations. Respiratory: No shortness of breath, no wheezes, no cough. Gastrointestinal: No vomiting, no diarrhea. Left flank pain. Genitourinary: No dysuria, no hematuria. Musculoskeletal: Normal range of motion. Skin: No rashes, no pruritis. Neurological: No dizziness, weakness, sensory change, speech change. Endo/Heme/Allergies: No bruising or bleeding. No polydipsia. Pysch: no suicidality, no anxiety, no insomnia. All other systems reviewed and are negative. [facility] Medical History (Updated 07/21/25 @ 09:54 by Jatin Silva MD) History of gestational diabetes ?Z86.32 - Personal history of gestational diabetes (ICD-10) History of nephrolithiasis ?Z87.442 - Personal history of urinary calculi (ICD-10) History of abnormal cervical Pap smear (2000) ?Z87.42 - Personal history of other diseases of the female genital tract (ICD-10) History of loss ?Z87.59 - Personal history of other complications of , childbirth and the puerperium (ICD-10) Surgical History (Updated 09/08/23 @ 11:02 by Steff Meza) History of cholecystectomy ?Z90.49 - Acquired absence of other specified parts of digestive tract (ICD-10) History of tonsillectomy and adenoidectomy ?Z90.89 - Acquired absence of other organs (ICD-10) History of loop electrosurgical excision procedure (LEEP) (12/2001) ?Z98.890 - Other specified postprocedural states (ICD-10) Family History (Updated 09/08/23 @ 11:10 by Steff Meza) Father Heart disease High cholesterol Mother Diabetes High cholesterol High blood pressure Exam Narrative: Exam Narrative: Constitutional: Well-developed, well-nourished, no acute distress. HEENT: Normocephalic, atraumatic. Neck: Normal range of motion. Nontender. Supple. Heart: Intact distal pulses. Lungs: No chest discomfort. No wheezes, rhonchi, or rales. Abdomen: Nontender. Back: Normal range of motion. Left flank pain. Extremities: Normal range of motion. No injury. Skin: Intact. No rash. Warm. No erythema or pallor. Neurologic: No altered sensation. No weakness. Alert and oriented. Psychiatric: No suicidality. No anxiety or depression. No insomnia. Nursing notes and vitals signs are reviewed. Const: Vital Signs, click to edit/add: Vital Signs - 24 hr 07/21/25 07:50 07/21/25 08:35 07/21/25 08:45 Temperature 97.7 F Pulse Rate 81 82 Pulse Rate [Left P ulse Oximeter] 86 Respiratory Rate 18 Blood Pressure [Ri ght Upper Arm] 133/81 Pulse Oximetry 100 99 96 Oxygen Delivery Me thod Room Air 07/21/25 09:00 07/21/25 09:15 07/21/25 09:30 Temperature Pulse Rate 71 69 70 Pulse Rate [Left P ulse Oximeter] Respiratory Rate 16 Blood Pressure [Ri ght Upper Arm] Pulse Oximetry 96 97 98 Oxygen Delivery Me thod 07/21/25 09:45 Temperature Pulse Rate 79 Pulse Rate [Left P ulse Oximeter] Respiratory Rate 16 Blood Pressure [Ri ght Upper Arm] Pulse Oximetry 97 Oxygen Delivery Me thod Course Vital Signs Vital signs: Initial Vital Signs Temperature 97.7 F 07/21/25 07:50 Temperature Source Temporal Artery Scan 07/21/25 07:50 Pulse Rate 86 07/21/25 07:50 Pulse Rhythm Regular 07/21/25 07:50 Pulse Strength 3+ Normal 07/21/25 07:50 Respiratory Rate 18 07/21/25 07:50 Blood Pressure 133/81 07/21/25 07:50 Blood Pressure Mean 98 07/21/25 07:50 Blood Pressure Position Sitting 07/21/25 07:50 Pulse Oximetry 100 07/21/25 07:50 Oxygen Delivery Method Room Air 07/21/25 07:50 Vital Signs Temperature 97.7 F 07/21/25 07:50 Pulse Rate 86 07/21/25 07:50 Respiratory Rate 18 07/21/25 07:50 Blood Pressure 133/81 07/21/25 07:50 Pulse Oximetry 100 07/21/25 07:50 Oxygen Delivery Method Room Air 07/21/25 07:50 Temperature 97.7 F 07/21/25 07:50 Pulse Rate 79 07/21/25 09:45 Respiratory Rate 16 07/21/25 09:45 Blood Pressure 133/81 07/21/25 07:50 Pulse Oximetry 97 07/21/25 09:45 Oxygen Delivery Method Room Air 07/21/25 07:50 Medications Administered Medications: Discontinued Medications Generic Name Dose Route Start Last Admin Trade Name Carmeloq PRN Reason Stop Dose Admin Hydromorphone HCl 0.5 mg 07/21/25 08:03 07/21/25 08:32 Hydromorphone 0.5 Mg/0.5 Ml Inj IVP 07/21/25 08:04 0.5 mg ONCE ONE Administration Ketorolac Tromethamine 30 mg 07/21/25 08:03 07/21/25 08:32 Ketorolac 30 Mg/Ml Inj IVP 07/21/25 08:04 30 mg ONCE ONE Administration Ondansetron HCl 4 mg 07/21/25 08:03 07/21/25 08:33 Ondansetron 2 Mg/Ml Inj IVP 07/21/25 08:04 4 mg ONCE ONE Administration Medical Decision Making MDM Narrative Medical decision making narrative: This 49-year-old female comes in with right-sided flank pain and dysuria symptoms. She has a history of recurrent kidney stones. CT images are obtained and do show stones up in her kidneys but no sign of obstructive uropathy. Urinalysis however does show sign of urinary tract infection. The patient did receive IV doses of Dilaudid, Toradol, and Zofran. She continues to have some spasms that she complains of. I did also then administer a tablet of Pyridium 200 mg. She is okay to be discharged home and received prescriptions for Keflex, Toradol. Lab Data Labs: Lab Results 07/21/25 Range/Units 08:20 Urine Color Light yellow (Yellow) Urine Appearance Slightly Cloudy A (Clear) Urine pH 6.0 (5.0-8.5) Ur Specific [place] <= 1.005 (1.000-1.030) Urine Protein Negative (Negative) Urine Glucose (UA) Negative (Negative) Urine Ketones Negative (Negative) Urine Blood Trace-intact A (Negative) Urine Nitrite Negative (Negative) Urine Bilirubin Negative (Negative) Urine Urobilinogen 0.2 (0.2-1.0) Ur Leukocyte Esterase 3+ A (Negative) Urine RBC 0-2 (0-2) Urine WBC 10-25 A (0-5) Ur Squamous Epith Cells Moderate A (None-Few) Amorphous Sediment Few A (None) Urine Bacteria Few A (None) Imaging Data CT scan - abdomen: Radiologist's impression: 1. Nephrolithiasis without evidence of ureteral stone or hydronephrosis. 2. Colonic diverticulosis without CT evidence of diverticulitis. Discharge Plan Discharge Clinical Impression: Urinary tract infection Patient Disposition: Home, Self-Care Condition: Stable Additional Instructions: Take medications as prescribed. Also use [id number] peridium, azo, Uristat as needed and directed for symptomatic relief. Prescriptions: New ketorolac 10 mg tablet 10 mg PO TID 5 Days Qty: 15 0RF cephalexin 500 mg capsule 500 mg PO TID 7 Days Qty: 21 0RF potassium citrate [Urocit-K 15] 15 mEq tablet extended release 15 meq PO BID Qty: 60 2RF No Action Child Benadryl Plus Congestion 12.5-5 mg/5 mL solution PO hydromorphone 2 mg tablet 2 mg PO Q6H (DME) Blood Glucose Meter Misc See Rx Instructions .ROUTE Rx Instructions: As directed hydromorphone 2 mg tablet 2 mg PO Q4H PRN (Reason: pain) Qty: 10 0RF Follow Up/Referrals: Melly Noguera PA-C [Primary Care Provider, Family Practice] [facility] Inst[facility]
[2025-07-21] MEDS: ONDANSETRON 2 MG/ML inj 4 MG IVP (08:33)
[2025-07-21 08:40] LABS: Appearance Urine Slightly Cloudy (Clear)
[2025-07-21] MEDS: PHENAZOPYRIDINE HCL 200 MG TABLET PO (10:05)
== END 2025-07-21 10:07 | disposition home or self-care (01) ==
PROVIDERS: Emergency Provider Emergency Medicine Emergency Medical Services; PCP Physician Assistant
DX: N39.0 Urinary tract infection, site not specified (principal)
CPT/HCPCS: 74176; 81001; 87086; 94761; 96374; 96375; 99284; 99285; A9270; J1171; J1885; J2405